=== PATIENT | male | born 2000 | race Caucasian/White ===

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

== ENCOUNTER 2022-07-28 20:17 | Emergency (ER) | payer OTHER, MEDICAID ==
[2022-07-28 20:25] VITALS: BP 150/81
--- NOTE | 2022-07-28 20:46 | ED Physician Documentation ---
PD HPI HEADACHE - Stated complaint Stated Complaint: HEADACHE/FATIGUE - Chief complaint Chief Complaint: Neuro - Additional information Additional information: Patient is 21-year-old male presenting to the emergency department with chief complaint of headache. Reports has had a right-sided headache intermittently ongoing x8 months. States has had increasing fatigue at home and has been sleeping greater than 16 hours for the last few days. Denies any head trauma, blurred vision, double vision, nausea, vomiting or focal or lateralizing neurologic symptoms. He reports that he has had to miss a few days of work because of his persistent fatigue and headache and both his boss and mother requested that he come in to the emergency department. He does not currently have a primary care doctor however he states that he will have a primary care doctor established in October. Review of Systems Neurologic: reports: Headache PD PAST MEDICAL HISTORY - Past Surgical History Past Surgical History: Yes HEENT: Tonsil/Adenoidectomy - Present Medications Home Medications: Ambulatory Orders Medication Instructions Recorded Confirmed Loratadine [Claritin] 10 mg PO PRN PRN 01/05/18 01/14/18 Amox/Clav 875/125 [Augmentin] 1 each PO Q12H #14 tablet 01/14/18 - Allergies Allergies/Adverse Reactions: Allergies Allergy/AdvReac Type Severity Reaction Status Date / Time No Known Drug Allergies Allergy Verified 07/28/22 20:22 - Social History Does the pt smoke?: No Smoking Status: Never smoker Does the pt drink ETOH?: No Does the pt have substance abuse?: No - Immunizations Immunizations are current?: Yes - POLST Patient has POLST: No PD ED PE NORMAL - Vitals Vital signs reviewed: Yes - General General: Alert and oriented X 3, No acute distress, Well developed/nourished - HEENT HEENT: Atraumatic, PERRL, EOMI, Ears normal, Moist mucous membranes, Pharynx benign, Dentition benign - Neck Neck: Supple, no meningeal sign, No bony TTP, No adenopathy, Thyroid normal, No JVD, No bruit, C-Spine cleared by NEXUS criteria - Cardiac Cardiac: RRR, No murmur, No gallop, No rub, Strong equal pulses - Respiratory Respiratory: No respiratory distress - Abdomen Abdomen: Non tender - Male Male : Deferred - Rectal Rectal: Deferred - Derm Derm: Normal color - Extremities Extremities: No deformity - Neuro Neuro: Alert and oriented X 3, ip architect 2-12 intact, No motor deficit, Normal speech Results - Vitals Vitals: Vital Signs - 24 hr 07/28/22 20:22 Temperature 36.5 C Heart Rate 88 Respiratory 16 Rate Blood Pressure 150/81 H O2 Saturation 99 Oxygen O2 Source Room air PD Medical Decision Making - ED course Complexity details: d/w patient Reviewed Lab Results: None ordered Social Determinants of Health: Patient does not have a primary care doctor at this time however will be established with a primary care doctor in October. Drug Therapy Requiring Monitoring for Toxicity: None ED course: Patient is 21-year-old male presenting to the emergency department with report of intermittent headache that has been ongoing x8 months as well as increased sleepiness at home for the last few days. Afebrile, he medically stable on arrival to the emergency department. Elevated blood pressure appreciated in the emergency department. Physical exam negative for any focal or lateralizing neurologic deficits. CT head was offered given the duration of the patient's symptoms and his atypical presentation however my concern for intracranial mass is minimal. Patient declined this intervention. He was offered medication to help with his headache which she declined. We discussed the multiple possible etiologies for recurrent chronic headache including primary headache disorder, sleep apnea, mood disorder. At this time there does not appear to be a life-threatening cause for the patient's symptoms and I will discharge for follow-up with primary care. I encouraged the patient to work towards establishing self with a primary care sooner than this coming October.. Clear return precautions Final clinical impression: Headache, fatigue Departure - Departure Disposition: Home, Self Care Clinical Impression: Fatigue Headache Qualifiers: Headache type: unspecified Headache chronicity pattern: unspecified pattern Intractability: not intractable Qualified Code(s): R51.9 - Headache, unspecified Instructions: Fatigue Manage Comments: Thank you for allowing us to care for you today [facility]. As we discussed there are many possible etiologies for recurrent or persistent headache. Your physical exam here in the emergency department is very reassuring. Please continue to work towards follow-up with a primary care doctor soon as possible. As we discussed if you develop any of the symptoms mentioned in the emergency department such as intractable headache that does not go away, fever, blurred vision, double vision, or weakness or discoordination in your upper or lower extremities please return to the emergency department.
== END 2022-07-28 21:03 | disposition home or self-care (01) ==
LOC: ED 20:17
DX: R53.83 Other fatigue (principal); R51.9 Headache, unspecified
CPT/HCPCS: 99281; 99282